=== PATIENT | male | born 1960 | race Caucasian/White ===

== ENCOUNTER 2016-09-07 18:41 | Emergency (ER) | payer MEDICAID ==
[~2016-09-07] VITALS: Ht 182.9 cm; Wt 79.8 kg
[2016-09-07 18:49] VITALS: BP_SYST 137
[2016-09-07] MEDS ORDERED: NACL 0.9% 1,000 ML IV SCH (18:58)
[2016-09-07 19:29] LABS: EOSINOPHILS % (AUTO) 0.1 % (0.0-4.0); LYMPHOCYTES # (AUTO) 0.3 K/uL (1.0-5.5); NEUTROPHILS # (AUTO) 7.5 K/uL (1.8-7.7); NEUTROPHILS % (AUTO) 86.7 % (40.0-70.0); WHITE BLOOD COUNT (AUTO) 8.6 K/uL (4.8-10.8)
[2016-09-07 19:32] LABS: BASOPHILS # (AUTO) 0.1 K/uL (0.0-0.2); BASOPHILS % (AUTO) 1.6 % (0.0-2.0); HEMATOCRIT 42.4 % (36-54); HEMOGLOBIN 14.1 g/dL (14.0-18.0); LYMPHOCYTES % (AUTO) 3.5 % (20.5-51.5); MEAN CORPUSCULAR HEMOGLOBIN 27 pg (27-31); MEAN CORPUSCULAR HGB CONC 33 % (32-36); MEAN CORPUSCULAR VOLUME 80 fL (79.0-98.0); MONOCYTES # (AUTO) 0.7 K/uL (0.0-1.0); MONOCYTES % (AUTO) 8.1 % (1.7-9.3); PLATELET COUNT (AUTO) 190 K/uL (130-430); RED BLOOD CELL COUNT(AUTO) 5.29 MIL/uL (4.2-6.2); RED CELL DISTRIBUTION WIDTH 12.6 % (9.0-15.0)
[2016-09-07 19:50] LABS: CALCIUM 9.7 mg/dL (8.4-11.0); CREATININE 1.03 mg/dL (0.55-1.30); POTASSIUM 3.8 mmol/L (3.5-5.1)
[2016-09-07 19:55] LABS: ALBUMIN 3.9 g/dL (3.4-4.8); TOTAL BILIRUBIN 0.6 mg/dL (0.0-1.0); TOTAL PROTEIN, SERUM 8.1 g/dL (6.4-8.3)
[2016-09-07 19:55] LABS: BILIRUBIN,URINE 1+ (NEGATIVE); BLOOD, URINE 2+ (NEGATIVE); CLARITY/URINE CLOUDY (CLEAR); COLOR,URINE YELLOW (YELLOW); GLUCOSE,URINE 2+ (NEGATIVE); KETONES,URINE 1+ (NEGATIVE); LEUKOCYTE ESTERASE ,URINE 1+ (NEGATIVE); NITRITE, URINE NEGATIVE (NEGATIVE); PH,URINE 5.5 (5.0-8.0); PROTEIN URINE 2+ (NEGATIVE); UROBILINOGEN,URINE 0.2 (0.2-1.0)
[2016-09-07] MEDS ORDERED: INSULIN REGULAR, HUMAN 10 UNITS/0.1 ML INJ IVP ONE (20:00)
[2016-09-07] MEDS ORDERED: MORPHINE 4 MG/ML INJ. SYRINGE IVP ONE (20:30)
[2016-09-07 21:10] VITALS: BP_SYST 142
[2016-09-07 22:04] LABS: BACTERIA,URINE MODERATE /HPF (None Seen); WBC,URINE 50-80 /HPF (0-3)
[2016-09-07 22:05] LABS: MUCUS,URINE 2+ /LPF (None Seen)
[2016-09-07 22:06] LABS: COARSE GRANULAR CASTS,URINE 0-10 /LPF (None Seen)
== END 2016-09-07 21:10 | disposition home or self-care (01) ==
LOC: SED 18:41
DX: E11.9 Type 2 diabetes mellitus without complications (principal); R03.0 Elevated blood-pressure reading, without diagnosis of hypertension
CPT/HCPCS: 36415; 80053; 81000; 81003; 83605; 84484; 85025; 87040; 87086; 87186; 96361; 96374; 99284; J1815; J7030; J2270